=== PATIENT | female | born 1985 | race Caucasian/White ===

== ENCOUNTER 2018-08-29 13:46 | Emergency (ER) | payer OTHER ==
--- NOTE | 2018-08-29 14:36 | ER Document Report ---
ED Medical Screen (RME) - General Chief Complaint: Chest Pain Stated Complaint: CHEST PAIN Time Seen by Provider: 08/29/18 14:30 Primary Care Provider: ENIO PEPE CNM [Primary Care Provider] - Follow up as needed TRAVEL OUTSIDE OF THE [place] IN LAST 30 DAYS: No - HPI Notes: 08/29/18 14:35 Patient is a 32-year-old female with a history of hypertension and obesity who presents complaining of midsternal chest pain that radiates up into her left shoulder that began this morning with an episode of nausea vomiting mild headache. Patient states that she has also had some sinus pressure. She is otherwise able to eat and drink without difficulty. She is urinating normally and having normal bowel movements. Denies any prolonged immobilization, distance travel, recent surgery/trauma, personal cancer history, hormone use, smoking, or previous DVT/PE. Denies ROBERTSON, fever, neck pain, URI, Abd pain, dysuria, back pain, or rash. I have treated and performed a rapid initial assessment of this patient. A comprehensive ED assessment and evaluation of the patient, analysis of test results and completion of medical decision making process will be conducted by additional ED providers. PHYSICAL EXAMINATION: GENERAL: Well-appearing, well-nourished and in no acute distress. A&Ox4. Answers questions appropriately. LUNGS: Breath sounds clear to auscultation bilaterally and equal. No wheezes rales or rhonchi. HEART: Regular rate and rhythm without murmurs, rubs, gallops. Extremities: No cyanosis, clubbing, or edema b/l. Linn negative bilaterally. No lower extremity asymmetry. NEUROLOGICAL: Normal speech, normal gait. PSYCH: Normal mood, normal affect. - Related Data Allergies/Adverse Reactions: ketorolac tromethamine [From Toradol] Allergy (Severe, Verified 08/29/18 13:49) Beef Containing Products Allergy (Verified 08/29/18 13:49) Pork/Porcine Containing Products [Pork/Porcine Product Derivatives] Allergy (Ve rified 08/29/18 13:49) Past Medical History - Social History Chew tobacco use (# tins/day): No Frequency of alcohol use: None Drug Abuse: None - Past Medical History Cardiac Medical History: Reports: Hx Hypertension - ON MEDS Denies: Hx Coronary Artery Disease, Hx Heart Attack Pulmonary Medical History: Denies: Hx Asthma, Hx Bronchitis, Hx COPD, Hx Pneumonia Neurological Medical History: Denies: Hx Cerebrovascular Accident, Hx Seizures Renal/ Medical History: Reports: Hx Kidney Stones. Denies: Hx Peritoneal Dialysis Musculoskeltal Medical History: Denies Hx Arthritis Psychiatric Medical History: Reports: Hx Attention Deficit Hyperactivity Disorder Traumatic Medical History: Reports: Hx Fractures - right arm Past Surgical History: Reports: Hx Cholecystectomy, Hx Orthopedic Surgery - right arm. Denies: Hx Hysterectomy - Immunizations Hx Diphtheria, Pertussis, Tetanus Vaccination: Yes Physical Exam - Vital signs Vitals: Temp Pulse Resp BP Pulse Ox 98.3 F 78 20 151/87 H 96 08/29/18 13:56 08/29/18 13:56 08/29/18 13:56 08/29/18 13:56 08/29/18 13:56 Course - Vital Signs Vital signs: Temp Pulse Resp BP Pulse Ox 98.3 F 78 20 151/87 H 96 08/29/18 13:56 08/29/18 13:56 08/29/18 13:56 08/29/18 13:56 08/29/18 13:56 Doctor's Discharge - Discharge Referrals: ENIO PEPE CNM [Primary Care Provider] - Follow up as needed
[2018-08-29 15:01] LABS: ABSOLUTE BASOPHILS # (AUTO) 0.1 10^3/uL (0.0-0.2); ABSOLUTE EOSINOPHILS # (AUTO) 0.3 10^3/uL (0.0-0.6); ABSOLUTE LYMPHOCYTES (AUTO) 3.2 10^3/uL (0.5-4.7); ABSOLUTE MONOCYTES (AUTO) 0.7 10^3/uL (0.1-1.4); ABSOLUTE NEUT (AUTO) 4.1 10^3/uL (1.7-8.2); BASOPHILS % (AUTO) 0.9 % (0-2); HEMATOCRIT 43.3 % (36.0-47.0); HEMOGLOBIN 14.7 g/dL (12.0-15.5); LYMPHOCYTES % (AUTO) 38.2 % (13-45); MEAN CORPUSCULAR HEMOGLOBIN 30.9 pg (27.0-33.4); MEAN CORPUSCULAR HGB CONC 33.9 g/dL (32.0-36.0); MEAN CORPUSCULAR VOLUME 91 fl (80-97); MONOCYTES % (AUTO) 8.5 % (3-13); PLATELET COUNT 284 10^3/uL (150-450); RED BLOOD COUNT 4.76 10^6/uL (3.72-5.28); RED CELL DISTRIBUTION WIDTH 13.3 % (11.5-14.0); SEGMENTED NEUTROPHILS % (AUTO) 49.4 % (42-78); TOTAL CELLS COUNTED % (AUTO) 100 %; WHITE BLOOD COUNT 8.3 10^3/uL (4.0-10.5)
--- NOTE | 2018-08-29 15:11 | RADIOLOGY REPORT (SQ) ---
EXAM DESCRIPTION: CHEST 2 VIEWS COMPLETED DATE/TIME: 08/29/2018 3:02 pm REASON FOR STUDY: CP COMPARISON: None. EXAM PARAMETERS: NUMBER OF VIEWS: two views TECHNIQUE: Digital Frontal and Lateral radiographic views of the chest acquired. RADIATION DOSE: NA LIMITATIONS: none FINDINGS: LUNGS AND PLEURA: No opacities, masses or pneumothorax. No pleural effusion. MEDIASTINUM AND HILAR STRUCTURES: No masses or contour abnormalities. HEART AND VASCULAR STRUCTURES: Heart normal size. No evidence for failure. BONES: No acute findings. HARDWARE: None in the chest. OTHER: No other significant finding. IMPRESSION: No acute abnormality of the lungs. No focal airspace opacity. TECHNICAL DOCUMENTATION: JOB ID: [id number] [employer]- All Rights Reserved Reading location - IP/workstation name: [email or web address]
[2018-08-29 15:16] LABS: APPEARANCE,URINE CLOUDY; BILIRUBIN,URINE NEGATIVE (NEGATIVE); CALCIUM OXALATE CRYSTALS,URINE MODERATE /HPF; COLOR,URINE YELLOW; GLUCOSE, URINE NEGATIVE (NEGATIVE); KETONES,URINE NEGATIVE (NEGATIVE); LEUKOCYTE ESTERASE,URINE MODERATE (NEGATIVE); NITRITE,URINE NEGATIVE (NEGATIVE); PROTEIN,URINE 30 mg/dL (NEGATIVE); URINE SPECIFIC GRAVITY 1.023
[2018-08-29 15:19] LABS: ALANINE AMINOTRANSFERASE 83 U/L (9-52); ALBUMIN 4.8 g/dL (3.5-5.0); ALKALINE PHOSPHATASE 58 U/L (38-126); ANION GAP 11 (5-19); ASPARTATE AMINO TRANSFERASE 56 U/L (14-36); BILIRUBIN,DIRECT 0.3 mg/dL (0.0-0.4); BILIRUBIN,TOTAL 0.5 mg/dL (0.2-1.3); BLOOD UREA NITROGEN 10 mg/dL (7-20); CARBON DIOXIDE 28 mmol/L (22-30); CHLORIDE 103 mmol/L (98-107); GLUCOSE 97 mg/dL (75-110); POTASSIUM 4.5 mmol/L (3.6-5.0); SODIUM 141.5 mmol/L (137-145)
--- NOTE | 2018-08-29 16:21 | EKG REPORT ---
SEVERITY:- NORMAL ECG - SINUS RHYTHM : Confirmed by: Joe Harper MD 29-Aug-2018 16:20:17
[2018-08-29] MEDS ORDERED: NEBIVOLOL HCL 10 MG TABLET PO ONE (16:28)
[2018-08-29] MEDS ORDERED: LIDOCAINE 5% (700 MG) TRANSDERMAL ADH..PATCH TP ONE (16:28)
[2018-08-29] MEDS ORDERED: ACETAMINOPHEN 325 MG TABLET PO ONE (16:28)
[2018-08-29] MEDS ORDERED: CEPHALEXIN 500 MG CAPSULE PO ONE (16:28)
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
[2018-08-29 19:20] VITALS: BP 146/84
== END 2018-08-29 19:20 | disposition home or self-care (01) ==
LOC: ER 13:46
DX: F43.9 Reaction to severe stress, unspecified (principal); N39.0 Urinary tract infection, site not specified; R07.9 Chest pain, unspecified; M54.2 Cervicalgia; M25.512 Pain in left shoulder; M54.6 Pain in thoracic spine; R51 Headache; R11.2 Nausea with vomiting, unspecified; F41.9 Anxiety disorder, unspecified; R68.84 Jaw pain; M79.602 Pain in left arm; I10 Essential (primary) hypertension; Z79.899 Other long term (current) drug therapy
CPT/HCPCS: 36415; 71046; 80053; 81001; 81025; 84484; 85025; 87086; 93005; 93010; 99284

== ENCOUNTER 2018-12-06 10:02 | Emergency (ER) | payer OTHER ==
--- NOTE | 2018-12-06 10:46 | ER Document Report ---
ED Medical Screen (RME) - General Chief Complaint: Chest Pain > 30 Stated Complaint: CHEST PAIN Time Seen by Provider: 12/06/18 10:44 Mode of Arrival: Ambulatory Information source: Patient Notes: Patient is an otherwise healthy 33-year-old female presenting with left-sided chest pain, back pain, left arm and some left lateral neck pain that began this morning. Patient does report it is worse with movement. Patient declines offer of muscle relaxer. Pain is worse with movement, likely musculoskeletal in nature. Patient requesting Tylenol for pain. Patient wants to make sure this is not her heart. Exam: Heart sounds S1-S2 present with no ectopy noted. Lung sounds clear and equal bilaterally. Reproducible pain with palpation on the left chest wall. I have greeted and performed a rapid initial assessment of this patient. A comprehensive ED assessment and evaluation of the patient, analysis of test results and completion of the medical decision making process will be conducted by additional ED providers. I have specifically instructed the patient or family members with the patient to immediately return to any nursing staff should anything change in the patient's condition or with their chief complaint. This medical record was dictated with voice recognizing software. There may be grammatical, syntax errors that are unintended. TRAVEL OUTSIDE OF THE [place] IN LAST 30 DAYS: No - Related Data Allergies/Adverse Reactions: ketorolac tromethamine [From Toradol] Allergy (Severe, Verified 08/29/18 13:49) Beef Containing Products Allergy (Verified 08/29/18 13:49) Pork/Porcine Containing Products [Pork/Porcine Product Derivatives] Allergy (Verified 08/29/18 13:49) Past Medical History - Social History Chew tobacco use (# tins/day): No Frequency of alcohol use: Occasional Drug Abuse: None - Past Medical History Cardiac Medical History: Reports: Hx Hypertension - ON MEDS Denies: Hx Coronary Artery Disease, Hx Heart Attack Pulmonary Medical History: Denies: Hx Asthma, Hx Bronchitis, Hx COPD, Hx Pneumonia Neurological Medical History: Denies: Hx Cerebrovascular Accident, Hx Seizures Renal/ Medical History: Reports: Hx Kidney Stones. Denies: Hx Peritoneal Dialysis Musculoskeltal Medical History: Denies Hx Arthritis Psychiatric Medical History: Reports: Hx Attention Deficit Hyperactivity Disorder Traumatic Medical History: Reports: Hx Fractures - right arm Past Surgical History: Reports: Hx Cholecystectomy, Hx Orthopedic Surgery - right arm. Denies: Hx Hysterectomy - Immunizations Hx Diphtheria, Pertussis, Tetanus Vaccination: Yes Physical Exam - Vital signs Vitals: Temp Pulse Resp BP Pulse Ox 98.5 F 83 16 151/78 H 98 12/06/18 10:13 12/06/18 10:13 12/06/18 10:13 12/06/18 10:13 12/06/18 10:13 Course - Vital Signs Vital signs: Temp Pulse Resp BP Pulse Ox 98.5 F 83 16 151/78 H 98 12/06/18 10:13 12/06/18 10:13 12/06/18 10:13 12/06/18 10:13 12/06/18 10:13
[2018-12-06] MEDS ORDERED: ACETAMINOPHEN 325 MG TABLET PO ONE (10:47)
[2018-12-06 11:17] LABS: ABSOLUTE BASOPHILS # (AUTO) 0.1 10^3/uL (0.0-0.2); ABSOLUTE EOSINOPHILS # (AUTO) 0.3 10^3/uL (0.0-0.6); ABSOLUTE LYMPHOCYTES (AUTO) 2.4 10^3/uL (0.5-4.7); ABSOLUTE MONOCYTES (AUTO) 0.4 10^3/uL (0.1-1.4); ABSOLUTE NEUT (AUTO) 3.5 10^3/uL (1.7-8.2); BASOPHILS % (AUTO) 1.1 % (0-2); HEMATOCRIT 41.9 % (36.0-47.0); LYMPHOCYTES % (AUTO) 35.8 % (13-45); MEAN CORPUSCULAR HEMOGLOBIN 30.6 pg (27.0-33.4); MEAN CORPUSCULAR HGB CONC 33.5 g/dL (32.0-36.0); MEAN CORPUSCULAR VOLUME 91 fl (80-97); PLATELET COUNT 324 10^3/uL (150-450); RED BLOOD COUNT 4.59 10^6/uL (3.72-5.28); SEGMENTED NEUTROPHILS % (AUTO) 52.1 % (42-78); TOTAL CELLS COUNTED % (AUTO) 100 %; WHITE BLOOD COUNT 6.7 10^3/uL (4.0-10.5)
[2018-12-06 11:43] LABS: ALBUMIN 4.4 g/dL (3.5-5.0); ALKALINE PHOSPHATASE 55 U/L (38-126); ANION GAP 9 (5-19); ASPARTATE AMINO TRANSFERASE 31 U/L (14-36); BILIRUBIN,DIRECT 0.1 mg/dL (0.0-0.4); BILIRUBIN,TOTAL 0.5 mg/dL (0.2-1.3); BLOOD UREA NITROGEN 13 mg/dL (7-20); CALCIUM 9.7 mg/dL (8.4-10.2); CARBON DIOXIDE 28 mmol/L (22-30); CHLORIDE 103 mmol/L (98-107); GLUCOSE 136 mg/dL (75-110); POTASSIUM 4.2 mmol/L (3.6-5.0); TOTAL PROTEIN 7.8 g/dL (6.3-8.2)
--- NOTE | 2018-12-06 11:58 | RADIOLOGY REPORT (SQ) ---
EXAM DESCRIPTION: CHEST 2 VIEWS COMPLETED DATE/TIME: 12/06/2018 11:50 am REASON FOR STUDY: chest pain COMPARISON: PA and lateral views of the chest from 08/29/2018. EXAM PARAMETERS: NUMBER OF VIEWS: two views TECHNIQUE: Digital Frontal and Lateral radiographic views of the chest acquired. RADIATION DOSE: NA LIMITATIONS: none FINDINGS: LUNGS AND PLEURA: Mild bilateral peribronchial cuffing without a superimposed consolidatio n, pleural effusion or pneumothorax. MEDIASTINUM AND HILAR STRUCTURES: No mediastinal or hilar contour abnormality. HEART AND VASCULAR STRUCTURES: The cardiac silhouette and pulmonary vasculature are within normal ayoub its. BONES: No acute findings. HARDWARE: Intramedullary nail in the right humerus. OTHER: No other finding. IMPRESSION: Mild bilateral peribronchial cuffing without a superimposed consolidation, pleural effus ion or pneumothorax. Clinical correlation to exclude an infectious or inflammatory bronchiolitis is recommended. TECHNICAL DOCUMENTATION: JOB ID: [id number] [employer]- All Rights Reserved Reading location - IP/workstation name: [email or web address]
--- NOTE | 2018-12-06 13:24 | ER Document Report ---
ED General - General Chief Complaint: Chest Pain > 30 Stated Complaint: CHEST PAIN Time Seen by Provider: 12/06/18 10:44 Primary Care Provider: CORWIN KAPADIA PA-C [Primary Care Provider] - Follow up as needed Mode of Arrival: Ambulatory TRAVEL OUTSIDE OF THE [place] IN LAST 30 DAYS: No - HPI Notes: Patient is a 33-year-old female presents emergency department for evaluation of left-sided chest pain. She states she was playing with her son, and had onset of chest pain at about 9:00. It actually started in her thoracic area. It radiated around, underneath her axilla, into her chest. She states it hurts to move. Nothing seems to make it better. She described it as a sore, sharp pain. Because it was in her left side she was concerned it could be her heart. She declines muscle relaxers of any sort. She states she felt slightly nauseated when the pain was severe, at this point she denies any other associated symptoms. - Related Data Allergies/Adverse Reactions: ketorolac tromethamine [From Toradol] Allergy (Severe, Verified 12/06/18 11:15) Beef Containing Products Allergy (Verified 12/06/18 11:15) Pork/Porcine Containing Products [Pork/Porcine Product Derivatives] Allergy (Verified 12/06/18 11:15) Home Medications: Bystolic daily Past Medical History - General Information source: Patient - Social History Smoking Status: Never Smoker Chew tobacco use (# tins/day): No Frequency of alcohol use: Occasional Drug Abuse: None Family History: Reviewed & Not Pertinent Patient has suicidal ideation: No Patient has homicidal ideation: No - Past Medical History Cardiac Medical History: Reports: Hx Hypertension - ON MEDS Denies: Hx Coronary Artery Disease, Hx Heart Attack Pulmonary Medical History: Denies: Hx Asthma, Hx Bronchitis, Hx COPD, Hx Pneumonia Neurological Medical History: Denies: Hx Cerebrovascular Accident, Hx Seizures Renal/ Medical History: Reports: Hx Kidney Stones. Denies: Hx Peritoneal Dialysis Musculoskeletal Medical History: Denies Hx Arthritis Psychiatric Medical History: Reports: Hx Attention Deficit Hyperactivity Disorder Traumatic Medical History: Reports: Hx Fractures - right arm Past Surgical History: Reports: Hx Cholecystectomy, Hx Orthopedic Surgery - right arm. Denies: Hx Hysterectomy - Immunizations Hx Diphtheria, Pertussis, Tetanus Vaccination: Yes Review of Systems - Review of Systems Constitutional: No symptoms reported EENT: No symptoms reported Cardiovascular: See HPI Respiratory: No symptoms reported Gastrointestinal: See HPI Genitourinary: No symptoms reported Musculoskeletal: See HPI Skin: No symptoms reported Neurological/Psychological: No symptoms reported Physical Exam - Vital signs Vitals: Temp Pulse Resp BP Pulse Ox 98.5 F 83 16 151/78 H 98 12/06/18 10:13 12/06/18 10:13 12/06/18 10:13 12/06/18 10:13 12/06/18 10:13 - Notes Notes: Vital signs reviewed, please refer to chart. Head is normocephalic, atraumatic. Pupils equal round, reactive to light. Neck is supple without meningismus. Heart is regular rate and rhythm. Lungs are clear to auscultation bilaterally. Abdomen is soft, nontender, normoactive bowel sounds throughout. Extremities without cyanosis, clubbing. Posterior calves are nontender. Peripheral pulses are equal. Skin is warm and dry. Patient is awake, alert, neurological exam is nonfocal. Examination of the chest wall is no obvious deformity. Patient has significant tenderness to palpation over the left pectoralis muscle, particularly at the insertion site and more inferiorly. This pain wraps around into her upper back, where it is reproducible at the level of the thoracic spine at approximately T5-6. Course - Re-evaluation Re-evalutation: 12/06/18 14:03 Patient presents emergency department for evaluation. Obesity and high blood pressure are her risk factors for coronary artery disease. This, however, does not seem typical for anginal pain in any way. It is reproducible. It started onset of rest. Is worsened by movement. I explained to the patient that she should continue to address her risk factors aggressively as possible. She is to follow-up with primary care. She voiced understanding to this. She does not want any medications to help with pain at home. She is told to try moist heat. She is to return to the ED with worsening or new concerning symptoms of any sort. 12/06/18 14:04 In regards to her chest x-ray, the patient does not have any significant cough. My suspicion is that this is limited secondary to her BMI. She needs to follow- up with primary care. - Vital Signs Vital signs: Temp Pulse Resp BP Pulse Ox 97.9 F 72 16 140/88 H 95 12/06/18 13:33 12/06/18 13:33 12/06/18 13:33 12/06/18 13:33 12/06/18 13:33 - Laboratory Result Diagrams: 12/06/18 11:07 12/06/18 11:07 Laboratory results interpreted by me: 12/06/18 11:07 Glucose 136 H - Diagnostic Test Radiology reviewed: Reports reviewed Radiology results interpreted by me: 12/06/18 14:04 Chest X-Ray 12/06/18 10:29 IMPRESSION: Mild bilateral peribronchial cuffing without a superimposed consolidation, pleural effusion or pneumothorax. Clinical correlation to exclude an infectious or inflammatory bronchiolitis is recommended. - EKG Interpretation by Me Additional EKG results interpreted by me: 12/06/18 14:04 Sinus mechanism with a rate of 83 bpm. Normal axis and intervals, nonspecific ST changes, but no acute changes concerning for ischemia or infarction. Discharge - Discharge Clinical Impression: Chest pain, Thoracic back pain Condition: Stable Disposition: HOME, SELF-CARE Instructions: Chest Wall Pain ([facility]), Chest Pain of Unclear Cause ([facility]), Myalagia (Muscle Pain) ([facility]) Additional Instructions: Moist heat to the painful areas. Follow up iwth your primary care doctor next week. Be sure to continue to address your risk factors. Return to the ER with worsening or new concerning symptoms. Referrals: CORWIN KAPADIA PA-C [Primary Care Provider] - Follow up as needed
[2018-12-06 13:34] VITALS: BP 140/88
--- NOTE | 2018-12-06 19:08 | EKG REPORT ---
SEVERITY:- BORDERLINE ECG - SINUS RHYTHM BORDERLINE T ABNORMALITIES, INFERIOR LEADS : Confirmed by: Vandana Ellington MD 06-Dec-2018 19:07:51
== END 2018-12-06 14:00 | disposition home or self-care (01) ==
LOC: ER 10:02
DX: R07.9 Chest pain, unspecified (principal); M54.6 Pain in thoracic spine; R11.0 Nausea; E66.9 Obesity, unspecified; I10 Essential (primary) hypertension; Z79.899 Other long term (current) drug therapy; Z88.8 Allergy status to other drugs, medicaments and biological substances; Z91.018 Allergy to other foods
CPT/HCPCS: 36415; 71046; 80053; 84484; 85025; 93005; 93010; 99285

== ENCOUNTER 2019-01-15 10:29 | Emergency (ER) | payer OTHER ==
[2019-01-15 10:53] VITALS: BP 167/97
[2019-01-15] MEDS ORDERED: IBUPROFEN 800 MG TABLET PO ONE (11:10)
[2019-01-15] MEDS ORDERED: ACETAMINOPHEN 325 MG TABLET PO ONE (11:12)
--- NOTE | 2019-01-15 11:14 | ER Document Report ---
HPI - HPI Patient complains to provider of: Headache Time Seen by Provider: 01/15/19 11:06 Onset: Other - 4 days Quality of pain: Achy Severity: Moderate Pain Level: 3 Context: 33-year-old female presents emergency department with complaints of headache for the past 4 days. Reports [place] [facility] and fell hit her head against a railing and was knocked unconscious. She is unsure how long she was knocked unconscious. She reports she immediately started vomiting afterwards. Had a headache. She reports she vomited all day y esterday. Has taken Tylenol without relief of symptoms. Associated Symptoms: Vomiting Exacerbated by: Denies Relieved by: Denies Similar symptoms previously: No Recently seen / treated by doctor: No - REPRODUCTIVE Reproductive: DENIES: : Past Medical History - General Information source: Patient Last Menstrual Period: Current-denies reports not sexually active - Social History Smoking Status: Never Smoker Chew tobacco use (# tins/day): No Frequency of alcohol use: Occasional Drug Abuse: None Lives with: Family Family History: Reviewed & Not Pertinent Patient has suicidal ideation: No Patient has homicidal ideation: No - Past Medical History Cardiac Medical History: Reports: Hx Hypertension - ON MEDS Denies: Hx Coronary Artery Disease, Hx Heart Attack Pulmonary Medical History: Denies: Hx Asthma, Hx Bronchitis, Hx COPD, Hx Pneumonia Neurological Medical History: Denies: Hx Cerebrovascular Accident, Hx Seizures Renal/ Medical History: Reports: Hx Kidney Stones. Denies: Hx Peritoneal Dialysis Musculoskeletal Medical History: Denies Hx Arthritis Psychiatric Medical History: Reports: Hx Attention Deficit Hyperactivity Disorder Traumatic Medical History: Reports: Hx Fractures - right arm Past Surgical History: Reports: Hx Cholecystectomy, Hx Orthopedic Surgery - right arm. Denies: Hx Hysterectomy - Immunizations Hx Diphtheria, Pertussis, Tetanus Vaccination: Yes Vertical Provider Document - CONSTITUTIONAL Agree With Documented VS: Yes Exam Limitations: No Limitations General Appearance: WD/WN, No Apparent Distress - Nontoxic looking - INFECTION CONTROL TRAVEL OUTSIDE OF THE [place] IN LAST 30 DAYS: No - HEENT HEENT: Atraumatic, Normal ENT Exam, Normocephalic, PERRLA. negative: Conjuctival Injection, Pharyngeal Erythema, Tympanic Membrane Bulging - NECK Neck: Normal Inspection, Supple. negative: Lymphadenopathy-Left, Lymphadenopathy-Right - RESPIRATORY Respiratory: Breath Sounds Normal, No Respiratory Distress - CARDIOVASCULAR Cardiovascular: Regular Rate, Regular Rhythm - GI/ABDOMEN Gastrointestinal: Abdomen Soft - MUSCULOSKELETAL/EXTREMETIES Musculoskeletal/Extremeties: JACQUE RAMOS - NEURO Level of Consciousness: Awake, Alert, Appropriate Motor/Sensory: No Motor Deficit - DERM Integumentary: Warm, Dry Course - Re-evaluation Re-evalutation: 01/15/19 12:13 33-year-old female presents emergency department with complaints of head injury. Reports she fell off her stepstool on 4 days ago while she was hanging lights. Reports change in consciousness for a few seconds. Reported vomiting immediately afterwards then had a headache. Reports she is had a headache since then and vomited all day yesterday. Has taken Tylenol without relief of symptoms. Declines Motrin declines other medications. CT is negative for acute injury. Patient reports she is feeling a little bit better after she received Tylenol. She was instructed to follow-up with her primary care provider to review her blood pressure medications and for continued pain. She verbalized understanding to all instructions. Head CT 01/15/19 11:12 IMPRESSION: 1. No acute intracranial abnormality. EVIDENCE OF ACUTE STROKE: NO. 01/15/19 12:51 Dictation of this chart was performed using voice recognition software; therefore, there may be some unintended grammatical errors. - Vital Signs Vital signs: Temp Pulse Resp BP Pulse Ox 97.8 F 79 20 167/97 H 98 01/15/19 11:04 01/15/19 11:04 01/15/19 11:04 01/15/19 11:04 01/15/19 11:04 - Diagnostic Test Radiology reviewed: Reports reviewed Discharge - Discharge Clinical Impression: Vomiting Head injury Qualifiers: Encounter type: initial encounter Qualified Code(s): S09.90XA - Unspecified injury of head, initial encounter Headache Qualifiers: Headache type: unspecified Headache chronicity pattern: unspecified pattern Intractability: not intractable Qualified Code(s): R51 - Headache Condition: Stable Disposition: HOME, SELF-CARE Instructions: Antinausea Medication ([facility]), Use of Diphenhydramine, Headache ([facility]), Head Injury Precautions ([facility]), Vomiting ([facility]) Additional Instructions: *You have been evaluated for head injury, vomiting, and headache *Push fluids, take Tylenol as indicated for headache, take Benadryl as indicated *Follow up with your primary care provider within 1 week *Take medication as prescribed for nausea *Return to ED for worsening condition, changes, needs Prescriptions: Ondansetron [Zofran Odt 4 mg Tablet] 1 - 2 tab PO Q4H #10 tab.daysidis Referrals: CORWIN KAPADIA PA-C [Primary Care Provider] - Follow up in 3-5 days
--- NOTE | 2019-01-15 12:05 | RADIOLOGY REPORT (SQ) ---
EXAM DESCRIPTION: CT HEAD WITHOUT COMPLETED DATE/TIME: 01/15/2019 11:38 am REASON FOR STUDY: FALL CHANGE IN LOC [place] COMPARISON: None. TECHNIQUE: Axial images acquired through the brain without intravenous contrast. Images reviewed wi th bone, brain and subdural windows. Additional sagittal and coronal reconstructions were generated. Images stored on PACS. All CT scanners at this facility use dose modulation, iterative reconstruction, and/or weight based d osing when appropriate to reduce radiation dose to as low as reasonably achievable (ALARA). [facility]: Dose Right [facility]: CareDose [facility]: Dose Right [facility]: Teradose 4D [facility]: Smart Lore RADIATION DOSE: CT Rad equipment meets quality standard of care and radiation dose reduction techniq ues were employed. CTDIvol: 53.2 mGy. DLP: 1017 mGy-cm. LIMITATIONS: None. FINDINGS: VENTRICLES: Normal size and contour. The cisterns are patent. CEREBRUM: No masses. No hemorrhage. No midline shift. No evidence for acute infarction. Normal gra y/white matter differentiation. No areas of low density in the white matter. CEREBELLUM: No masses. No hemorrhage. No alteration of density. No evidence for acute infarction. EXTRAAXIAL SPACES: No fluid collections. No masses. ORBITS AND GLOBE: No intra- or extraconal masses. Normal contour of globe without masses. CALVARIUM: No fracture. PARANASAL SINUSES: No fluid or mucosal thickening. SOFT TISSUES: No mass or hematoma. OTHER: No other significant finding. IMPRESSION: 1. No acute intracranial abnormality. EVIDENCE OF ACUTE STROKE: NO. COMMENT: Quality ID # [id number]: Final reports with documentation of one or more dose reduction techniques (e.g., Automated exposure control, adjustment of the mA and/or kV according to patient size, use of iterative reconstruction technique) TECHNICAL DOCUMENTATION: JOB ID: [id number] [employer]- All Rights Reserved Reading location - IP/workstation name: [email or web address]
== END 2019-01-15 12:20 | disposition home or self-care (01) ==
LOC: ER 10:29
DX: S06.9X9A Unspecified intracranial injury with loss of consciousness of unspecified duration, initial encounter (principal); R51 Headache; R11.10 Vomiting, unspecified; W17.89XA Other fall from one level to another, initial encounter; Y93.89 Activity, other specified; I10 Essential (primary) hypertension
CPT/HCPCS: 70450; 99284

== ENCOUNTER 2019-04-01 10:35 | Emergency (ER) | payer OTHER ==
--- NOTE | 2019-04-01 12:02 | ER Document Report ---
ED Medical Screen (RME) - General Chief Complaint: Chest Pain Stated Complaint: CHEST PAIN Time Seen by Provider: 04/01/19 11:51 Primary Care Provider: CORWIN KAPADIA PA-C [Primary Care Provider] - Follow up as needed Mode of Arrival: Ambulatory Information source: Patient Notes: Otherwise healthy 33-year-old female presenting to the emergency department with cough, congestion, chest pain and shortness of breath. Patient reports diagnosed with flu B several days ago. Patient reports she is getting worse. Lung sounds clear and equal bilaterally. I have greeted and performed a rapid initial assessment of this patient. A comprehensive ED assessment and evaluation of the patient, analysis of test results and completion of the medical decision making process will be conducted by additional ED providers. I have specifically instructed the patient or family members with the patient to immediately return to any nursing staff should anything change in the patient's condition or with their chief complaint. TRAVEL OUTSIDE OF THE [place] IN LAST 30 DAYS: No - Related Data Allergies/Adverse Reactions: ketorolac tromethamine [From Toradol] Allergy (Severe, Verified 04/01/19 11:54) Beef Containing Products Allergy (Verified 04/01/19 11:54) Pork/Porcine Containing Products [Pork/Porcine Product Derivatives] Allergy (Verified 04/01/19 11:54) tramadol Allergy (Verified 04/01/19 11:54) throat swelling Past Medical History - Past Medical History Cardiac Medical History: Reports: Hx Hypertension - ON MEDS Denies: Hx Coronary Artery Disease, Hx Heart Attack Pulmonary Medical History: Denies: Hx Asthma, Hx Bronchitis, Hx COPD, Hx Pneumonia Neurological Medical History: Denies: Hx Cerebrovascular Accident, Hx Seizures Renal/ Medical History: Reports: Hx Kidney Stones. Denies: Hx Peritoneal Dialysis Musculoskeltal Medical History: Denies Hx Arthritis Psychiatric Medical History: Reports: Hx Attention Deficit Hyperactivity Disorder Traumatic Medical History: Reports: Hx Fractures - right arm Past Surgical History: Reports: Hx Cholecystectomy, Hx Orthopedic Surgery - right arm. Denies: Hx Hysterectomy - Immunizations Hx Diphtheria, Pertussis, Tetanus Vaccination: Yes Physical Exam - Vital signs Vitals: Temp Pulse Resp BP Pulse Ox 98.5 F 95 16 134/84 H 100 04/01/19 11:00 04/01/19 11:00 04/01/19 11:00 04/01/19 11:00 04/01/19 11:00 Course - Vital Signs Vital signs: Temp Pulse Resp BP Pulse Ox 98.5 F 95 16 134/84 H 100 04/01/19 11:00 04/01/19 11:00 04/01/19 11:00 04/01/19 11:00 04/01/19 11:00 Doctor's Discharge - Discharge Referrals: CORWIN KAPADIA PA-C [Primary Care Provider] - Follow up as needed
[2019-04-01 13:11] LABS: A TYPE INFLUENZA AG NEGATIVE (NEGATIVE); B INFLUENZA AG NEGATIVE (NEGATIVE)
--- NOTE | 2019-04-01 13:14 | RADIOLOGY REPORT (SQ) ---
EXAM DESCRIPTION: CHEST 2 VIEWS COMPLETED DATE/TIME: 04/01/2019 12:55 pm REASON FOR STUDY: cough/CP/fever COMPARISON: Two-view chest 12/06/2018 EXAM PARAMETERS: NUMBER OF VIEWS: two views TECHNIQUE: Digital Frontal and Lateral radiographic views of the chest acquired. RADIATION DOSE: NA LIMITATIONS: none FINDINGS: LUNGS AND PLEURA: No opacities, masses or pneumothorax. No pleural effusion. MEDIASTINUM AND HILAR STRUCTURES: No masses or contour abnormalities. HEART AND VASCULAR STRUCTURES: Stable borderline cardiomegaly BONES: No acute findings. HARDWARE: None in the chest. OTHER: No other significant finding. IMPRESSION: NO ACUTE RADIOGRAPHIC FINDING IN THE CHEST. TECHNICAL DOCUMENTATION: JOB ID: [id number] 2010 [employer]- All Rights Reserved Reading location - IP/workstation name: [email or web address]
[2019-04-01] MEDS ORDERED: CETIRIZINE 10 MG TABLET PO ONE (13:35)
[2019-04-01] MEDS ORDERED: IPRATROPIUM/ALBUTEROL 0.5-2.5 MG/3 ML AMPUL NEB ONE (13:35)
--- NOTE | 2019-04-01 13:43 | ER Document Report ---
ED Respiratory Problem - General Chief Complaint: Shortness Of Breath Stated Complaint: CHEST PAIN Time Seen by Provider: 04/01/19 11:51 Primary Care Provider: [facility] [Provider Group] - Follow up in 3-5 days Mode of Arrival: Ambulatory Notes: Patient is a 33-year-old female who presents to the emergency department with a chief complaint of shortness of breath and difficulty breathing. She also reports a little bit of chest pain. Patient was recently diagnosed with the flu and she has been coughing. She has been taking Tylenol to help with her pain and fever. TRAVEL OUTSIDE OF THE [place] IN LAST 30 DAYS: No - Related Data Allergies/Adverse Reactions: ketorolac tromethamine [From Toradol] Allergy (Severe, Verified 04/01/19 11:54) Beef Containing Products Allergy (Verified 04/01/19 11:54) Penicillins Allergy (Verified 04/01/19 14:16) Pork/Porcine Containing Products [Pork/Porcine Product Derivatives] Allergy (Verified 04/01/19 11:54) tramadol Allergy (Verified 04/01/19 11:54) throat swelling Home Medications: Lisinopril Past Medical History - General Information source: Patient - Social History Smoking Status: Never Smoker Chew tobacco use (# tins/day): No Drug Abuse: None Family History: Reviewed & Not Pertinent Patient has suicidal ideation: No Patient has homicidal ideation: No - Past Medical History Cardiac Medical History: Reports: Hx Hypertension - ON MEDS Denies: Hx Coronary Artery Disease, Hx Heart Attack Pulmonary Medical History: Denies: Hx Asthma, Hx Bronchitis, Hx COPD, Hx Pneumonia Neurological Medical History: Denies: Hx Cerebrovascular Accident, Hx Seizures Renal/ Medical History: Reports: Hx Kidney Stones. Denies: Hx Peritoneal Dialysis Musculoskeletal Medical History: Denies Hx Arthritis Psychiatric Medical History: Reports: Hx Attention Deficit Hyperactivity Disorder Traumatic Medical History: Reports: Hx Fractures - right arm Past Surgical History: Reports: Hx Cholecystectomy, Hx Orthopedic Surgery - right arm. Denies: Hx Hysterectomy - Immunizations Hx Diphtheria, Pertussis, Tetanus Vaccination: Yes Review of Systems - Review of Systems Notes: REVIEW OF SYSTEMS: CONSTITUTIONAL : See HPI. EENT: See HPI. CARDIOVASCULAR: See HPI. RESPIRATORY: See HPI. GASTROINTESTINAL: Denies nausea, vomiting, and diarrhea. Denies abdominal pain. Denies constipation. GENITOURINARY: Denies difficulty urinating, burning, blood in urine, urgency or frequency. MUSCULOSKELETAL: Denies neck and back pain. Denies joint pain or swelling. SKIN: Denies rash, itchiness, or lesions HEMATOLOGIC : Denies easy bruising or bleeding. LYMPHATIC: Denies swollen, painful, enlarged glands. NEUROLOGICAL: Denies no numbness or tingling denies weakness. Denies headache. Denies altered mental status. Denies alteration in speech. PSYCHIATRIC: Denies stress, anxiety, alteration in sleep patterns, or depression. All other systems reviewed and negative. Physical Exam - Vital signs Vitals: Temp Pulse Resp BP Pulse Ox 98.5 F 95 16 134/84 H 100 04/01/19 11:00 04/01/19 11:00 04/01/19 11:00 04/01/19 11:04/01/19 11:00 - Notes Notes: PHYSICAL EXAMINATION: GENERAL: Appears well, healthy, well-nourished, no acute distress. HEAD: Normocephalic, atraumatic. EYES: PERRL, conjunctiva normal, all extraocular movements intact, sclera nonicteric ENT: Moist mucous membranes. Left tympanic membrane injected and right tympanic membrane with purulent drainage behind it. NECK: Supple, no noticeable swelling, redness, rash. Normal range of motion. LUNGS: Equal breath sounds bilaterally and clear to auscultation. No wheezes ra les or rhonchi. CARDIOVASCULAR: S1-S2, regular rate, regular rhythm. Radial pulses 2+, normal. ABDOMEN: Normoactive bowel sounds. Soft, nontender, no guarding, no rebound tenderness, and no masses palpated. EXTREMITIES: Normal strength and range of motion, no pitting or edema. No cyanosis. NEUROLOGICAL: Moves all extremities upon command. Strength 5/5 in all extremities. PSYCH: Normal mood, normal affect. SKIN: Warm, dry. No rash, lesions, ulcerations noted. Normal skin turgor. Course - Re-evaluation Re-evalutation: 04/01/19 13:38 Patient has diminished breath sounds throughout. Her chest x-ray is normal. No pneumonia noted. Patient will receive a DuoNeb treatment and will be reassessed. 04/01/19 13:58 RSV and flu are negative. She will be started on Flonase. Advised her to continue the cetirizine. She is in agreement with this plan. Follow-up precautions were given. Verbal discharge instructions were given to the patient. They verbalized understanding. They are stable for discharge. - Vital Signs Vital signs: Temp Pulse Resp BP Pulse Ox 98.0 F 82 18 128/78 H 98 04/01/19 14:15 04/01/19 14:15 04/01/19 14:15 04/01/19 14:15 04/01/19 14:15 Discharge - Discharge Clinical Impression: Upper respiratory infection, viral Right otitis media Qualifiers: Otitis media type: mucoid Chronicity: acute Qualified Code(s): H65.111 - Acute and subacute allergic otitis media (mucoid) (sanguinous) (serous), right ear Condition: Stable Disposition: HOME, SELF-CARE Additional Instructions: You were seen today in the emergency department for a cough, ear pain, and chest pain. Your symptoms are most consistent with an upper respiratory viral infection. Please take acetaminophen 1000 mg and ibuprofen 600 mg every 6 hours as needed for any body aches or fever. Please take your cetirizine, medication to help with your runny nose. Take 1 tablet every day while you have symptoms. You have also been given Flonase, medication to help with the inflammation in your nose. Place 1 spray to each nostril twice a day. If you develop a fever greater than 100.4 F while on ibuprofen and acetaminophen, develop shortness of breath, difficulty breathing, or any symptoms that are worrisome to you, please return to the emergency department. You are also being sent home with an albuterol inhaler. You can take 1 to 2 puffs every 4-6 hours as needed for shortness of breath. You also have an ear infection. You are being started on antibiotics. Please take your antibiotics as prescribed. Follow-up with your primary care provider in regards to this visit. Prescriptions: Fluticasone Propionate [Flonase Nasal [place] 50 Mcg/[place] 16 gm] 2 sprays NASL DAILY #1 inhaler Albuterol Sulfate [Proair HFA Inhalation Aerosol 8.5 gm MDI] 1 - 2 puff IH Q4H PRN #1 mdi PRN Reason: Azithromycin [Zithromax 250 mg Tablet] 250 mg PO DAILY #4 tablet Forms: Return to Work Referrals: [facility] [Provider Group] - Follow up in 3-5 days
[2019-04-01] MEDS ORDERED: ACETAMINOPHEN 325 MG TABLET PO ONE (14:02)
[2019-04-01] MEDS ORDERED: AZITHROMYCIN 250 MG TABLET PO ONE (14:11)
[2019-04-01 14:21] VITALS: BP 128/78
--- NOTE | 2019-04-01 18:48 | EKG REPORT ---
SEVERITY:- NORMAL ECG - SINUS RHYTHM : Confirmed by: Ramandeep Teague 01-Apr-2019 18:47:23
== END 2019-04-01 14:27 | disposition home or self-care (01) ==
LOC: ER 10:35
DX: J06.9 Acute upper respiratory infection, unspecified (principal); H65.111 Acute and subacute allergic otitis media (mucoid) (sanguinous) (serous), right ear; R06.02 Shortness of breath; R07.9 Chest pain, unspecified; R06.00 Dyspnea, unspecified; I10 Essential (primary) hypertension; Z88.0 Allergy status to penicillin; Z90.49 Acquired absence of other specified parts of digestive tract
CPT/HCPCS: 93005; 94640; 99285; 87070; 87880; 87804; 71046; 93010; J7620

== ENCOUNTER 2019-08-15 03:48 | Emergency (ER) | payer OTHER ==
--- NOTE | 2019-08-15 05:04 | RADIOLOGY REPORT (SQ) ---
EXAM DESCRIPTION: XR CHEST 1 VIEW COMPLETED DATE/TME: 08/15/2019 04:23 CLINICAL HISTORY: 33 years, Female, chest pain COMPARISON: 04/01/2019 NUMBER OF VIEWS: One TECHNIQUE: AP view the chest LIMITATIONS: None. FINDINGS: The lungs are clear. The heart is normal in size. There is no pneumothorax or pleural effusion. Postsurgical changes to the right humerus are partially visualized. IMPRESSION: No acute cardiopulmonary abnormality. copyright 2010 [employer]- All Rights Reserved
[2019-08-15] MEDS ORDERED: ACETAMINOPHEN 325 MG TABLET PO ONE (05:45)
[2019-08-15] MEDS ORDERED: ONDANSETRON 4 MG TAB.RAPDIS PO ONE (05:47)
[2019-08-15] MEDS ORDERED: ONDANSETRON 4 MG TAB.RAPDIS ONE (05:52)
[2019-08-15 06:30] LABS: ABSOLUTE EOSINOPHILS # (AUTO) 0.2 10^3/uL (0.0-0.6); ABSOLUTE LYMPHOCYTES (AUTO) 2.8 10^3/uL (0.5-4.7); ABSOLUTE MONOCYTES (AUTO) 0.7 10^3/uL (0.1-1.4); BASOPHILS % (AUTO) 0.6 % (0-2); EOSINOPHILS % (AUTO) 3.3 % (0-6); HEMATOCRIT 40.6 % (36.0-47.0); LYMPHOCYTES % (AUTO) 41.7 % (13-45); MEAN CORPUSCULAR HEMOGLOBIN 32.1 pg (27.0-33.4); MEAN CORPUSCULAR HGB CONC 34.5 g/dL (32.0-36.0); MEAN CORPUSCULAR VOLUME 93 fl (80-97); MONOCYTES % (AUTO) 9.9 % (3-13); PLATELET COUNT 275 10^3/uL (150-450); RED BLOOD COUNT 4.37 10^6/uL (3.72-5.28); SEGMENTED NEUTROPHILS % (AUTO) 44.5 % (42-78); TOTAL CELLS COUNTED % (AUTO) 100 %; WHITE BLOOD COUNT 6.8 10^3/uL (4.0-10.5)
[2019-08-15 06:50] LABS: ALBUMIN 4.1 g/dL (3.5-5.0); ALKALINE PHOSPHATASE 49 U/L (38-126); ANION GAP 7 (5-19); ASPARTATE AMINO TRANSFERASE 30 U/L (14-36); BILIRUBIN,TOTAL 0.6 mg/dL (0.2-1.3); BLOOD UREA NITROGEN 13 mg/dL (7-20); CALCIUM 9.5 mg/dL (8.4-10.2); CARBON DIOXIDE 26 mmol/L (22-30); CHLORIDE 105 mmol/L (98-107); GLUCOSE 101 mg/dL (75-110); TOTAL PROTEIN 7.1 g/dL (6.3-8.2)
--- NOTE | 2019-08-15 08:06 | ER Document Report ---
ED General - General Chief Complaint: Chest Pain Stated Complaint: CHEST PAIN Time Seen by Provider: 08/15/19 06:41 Primary Care Provider: CORWIN KAPADIA PA-C [Primary Care Provider] - Follow up as needed TRAVEL OUTSIDE OF THE [place] IN LAST 30 DAYS: No - HPI Notes: Chief complaint: Sore throat and chest pain HPI: Generally healthy 33-year-old female followed by [facility] was previously seen here 3 days ago for complaints of nonproductive cough and sore throat and had a COVID test done at that time which was reported negative. Persistent symptoms. She got a call from the clinic late yesterday being advised that she had a positive strep test. She is coming here requesting an antibiotic prescription and says also that her chest area is sore from coughing. - Related Data Allergies/Adverse Reactions: ketorolac tromethamine [From Toradol] Allergy (Severe, Verified 04/01/19 11:54) Beef Containing Products Allergy (Verified 04/01/19 11:54) Penicillins Allergy (Verified 04/01/19 14:16) Pork/Porcine Containing Products [Pork/Porcine Product Derivatives] Allergy (Verified 04/01/19 11:54) tramadol Allergy (Verified 04/01/19 11:54) throat swelling Home Medications: bystolic Past Medical History - General Information source: Patient - Social History Smoking Status: Never Smoker Family History: Reviewed & Not Pertinent Patient has homicidal ideation: No - Past Medical History Cardiac Medical History: Reports: Hx Hypertension - ON MEDS Denies: Hx Coronary Artery Disease, Hx Heart Attack Pulmonary Medical History: Denies: Hx Asthma, Hx Bronchitis, Hx COPD, Hx Pneumonia Neurological Medical History: Denies: Hx Cerebrovascular Accident, Hx Seizures Renal/ Medical History: Reports: Hx Kidney Stones. Denies: Hx Peritoneal Dialysis Musculoskeletal Medical History: Denies Hx Arthritis Psychiatric Medical History: Reports: Hx Attention Deficit Hyperactivity Disorder Traumatic Medical History: Reports: Hx Fractures - right arm Past Surgical History: Reports: Hx Cholecystectomy, Hx Orthopedic Surgery - r ight arm. Denies: Hx Hysterectomy - Immunizations Hx Diphtheria, Pertussis, Tetanus Vaccination: Yes Review of Systems - Review of Systems Notes: Constitutional: Negative for fever. HENT: As per HPI. Eyes: Negative for visual changes. Cardiovascular: As per HPI. Respiratory: As per HPI. Gastrointestinal: Negative for abdominal pain, vomiting or diarrhea. Genitourinary: Negative for dysuria. Musculoskeletal: Negative for back pain. Skin: Negative for rash. Neurological: Negative for headaches, weakness or numbness. 10 point ROS negative except as marked above and in HPI. Physical Exam - Vital signs Vitals: Pulse Ox 99 08/15/19 04:23 - Notes Notes: GENERAL: Moderately obese female approximately stated age appearing in no acute distress. SKIN: Good turgor no rashes. HEAD: Normocephalic atraumatic. EYES: PERRLA. EOMI. Conjunctivae and sclerae clear. EARS: CANALS AND TMS CLEAR. NOSE: CLEAR. MOUTH: Moist mucosa. Good dentition. No stridor or edema. No drooling. Throat: Injected without exudates. NECK: Supple. No masses or thyromegaly. No adenopathy. Carotids 2+ without bruits. No JVD. BACK: Symmetrical without tenderness. CHEST: Diffuse anterior chest wall tenderness that exactly reproduces her symptoms. Respirations unlabored. Breath sounds clear and symmetrical. HEART: Regular rhythm. No murmur gallop or rub. ABDOMEN: Soft nontender without masses, organomegaly or rebound. Bowel sounds normally active. No bruits. GENITALIA: Deferred. EXTREMITIES: No edema. No calf tenderness. Cap refill less than 1.5 seconds. Dorsalis pedis and posterior tibial pulses 3+ and symmetrical. NEUROLOGICAL: GCS 15. Alert and oriented x3. Normal gait. Fluent speech. Cranial nerves II through XII intact. Sensorimotor and cerebellar normal. Normal tone. PSYCHIATRIC: Appropriate affect. Course - Re-evaluation Re-evalutation: 08/15/19 08:06 CBC and comprehensive metabolic profile are all normal. Troponin is normal. Chest x-ray shows no active cardiopulmonary disease per radiologist. Normal EKG. Patient appears stable for outpatient management. We will treat her empirically with a Z-Shawn. Findings, clinical impression and plan of treatment have been discussed with patient/family. Understanding of current findings and recommendations has been acknowledged by them and there is agreement regarding disposition and follow-up. - Vital Signs Vital signs: Temp Pulse Resp BP Pulse Ox 98.5 F 70 16 131/81 H 97 08/15/19 07:02 08/15/19 04:31 08/15/19 07:01 08/15/19 07:01 08/15/19 07:01 - Laboratory Result Diagrams: 08/15/19 05:20 08/15/19 05:20 - Diagnostic Test Radiology reviewed: Reports reviewed - Normal chest x-ray per radiologist - EKG Interpretation by Me Additional EKG results interpreted by me: 08/15/19 08:07 Twelve-lead EKG from 04 15 hrs. this morning is reviewed by me demonstrating normal sinus rhythm with a rate of 86. Normal intervals and a QRS axis of -3 degrees. There are no acute ST/T wave changes. Tracing shows no interval change compared to prior study of 04/01/2019. Indication for current study: Chest pain. Discharge - Discharge Clinical Impression: Acute streptococcal pharyngitis Condition: Stable Disposition: HOME, SELF-CARE Additional Instructions: Strep Throat Your sore throat is due to the streptococcus germ (strep throat). Strep throat usually makes you feel quite ill with fever and aches, headache, swollen sore throat, and tender bumps under the angles of the jaw. Strep throat requires antibiotic treatment. Although the sore throat may go away by itself, complications such as rheumatic fever, kidney disease, or throat abscess can occur. We usually prescribe antibiotics by mouth. Be sure to take the medicine until it's gone. If you stop early, the strep may come back. If you are vomiting, are severely ill, or can't remember to take pills, we can give you an antibiotic shot. Take acetaminophen or ibuprofen for pain and fever. Sip frequent clear liquids, or use popsicles or ice chips. Anesthetic sprays or lozenges may help. Make sure the air in the room is not too dry. Avoid using decongestants or antihistamines. Call the doctor if there is no improvement in three days, or if you have difficulty breathing, increasing throat pain, high fever, rash, or frequent vomiting. Increase oral fluids. Tylenol as needed. Gargle with warm salt water as needed. Return here as needed for new or worsening symptoms: Pain that is worsening or unimproved Uncontrolled vomiting High fever or shaking chills Overall worsening You will be provided a work note for the next 3 days. Follow-up with your primary care physician next week. Prescriptions: Azithromycin [Zithromax 250 mg Tablet] 250 mg PO ASDIR PRN #6 tablet PRN Reason: Forms: Return to Work Referrals: KANG,CORWIN, PA-C [Primary Care Provider] - Follow up as needed
[2019-08-15 08:14] VITALS: BP 131/85
--- NOTE | 2019-08-15 22:11 | EKG REPORT ---
SEVERITY:- NORMAL ECG - SINUS RHYTHM : Confirmed by: Vandana Ellington MD 15-Aug-2019 22:10:46
== END 2019-08-15 08:42 | disposition home or self-care (01) ==
LOC: ER 03:48
DX: J02.0 Streptococcal pharyngitis (principal); R05 Cough; R07.9 Chest pain, unspecified; E66.9 Obesity, unspecified; I10 Essential (primary) hypertension; Z79.899 Other long term (current) drug therapy; Z88.8 Allergy status to other drugs, medicaments and biological substances; Z91.018 Allergy to other foods; Z88.0 Allergy status to penicillin; Z88.6 Allergy status to analgesic agent
CPT/HCPCS: 93005; 99284; 36415; 85025; 80053; 84484; 71045; 93010; S0119

== ENCOUNTER 2019-12-01 07:41 | Emergency (ER) | payer OTHER ==
[2019-12-01] MEDS ORDERED: ONDANSETRON HCL INJ/PF 4 MG/2 ML SDV IV ONE ×2 (08:32→10:39)
[2019-12-01] MEDS ORDERED: NORMAL SALINE 1000 ML 1,000 ML IV ONE (08:32)
[2019-12-01] MEDS ORDERED: MORPHINE SULFATE 10 MG/ML INJ IV ONE ×3 (08:32→10:39)
--- NOTE | 2019-12-01 08:37 | ER Document Report ---
ED GI/ - General Chief Complaint: Flank Pain Stated Complaint: ABDOMINAL PAIN Time Seen by Provider: 12/01/19 08:25 Primary Care Provider: CORWIN KAPADIA PA-C [Primary Care Provider] - Follow up as needed Notes: Patient is a 34-year-old female with a history of hypertension who presents to the emergency department with the chief complaint of left flank pain. Patient reports acute onset of left flank pain starting around 7 AM this morning. Patient reports she does have a history of kidney stones but that this feels different. Pain does wrap around into the left lower quadrant and left groin area. Patient states when she woke up with the pain she felt like urinating would help with her discomfort but it made it worse. Patient reports that she is only able to urinate a small amount. Patient denies fever. Patient reports nausea with vomiting. Denies diarrhea. Patient's abdominal surgeries include a cholecystectomy. TRAVEL OUTSIDE OF THE [place] IN LAST 30 DAYS: No - Related Data Allergies/Adverse Reactions: ketorolac tromethamine [From Toradol] Allergy (Severe, Verified 12/01/19 07:44) Beef Containing Products Allergy (Verified 12/01/19 07:44) Penicillins Allergy (Verified 12/01/19 07:44) Pork/Porcine Containing Products [Pork/Porcine Product Derivatives] Allergy (Verified 12/01/19 07:44) tramadol Allergy (Verified 12/01/19 07:44) throat swelling Past Medical History - General Information source: Patient - Social History Smoking Status: Unknown if Ever Smoked Chew tobacco use (# tins/day): No Drug Abuse: None Lives with: Family Family History: Reviewed & Not Pertinent - Past Medical History Cardiac Medical History: Reports: Hx Hypertension - ON MEDS Denies: Hx Coronary Artery Disease, Hx Heart Attack Pulmonary Medical History: Reports: None Denies: Hx Asthma, Hx Bronchitis, Hx COPD, Hx Pneumonia EENT Medical History: Reports: None Neurological Medical History: Reports: None. Denies: Hx Cerebrovascular Accident, Hx Seizures Endocrine Medical History: Reports: None Renal/ Medical History: Reports: Hx Kidney Stones. Denies: Hx Peritoneal Dialysis Malignancy Medical History: Reports: None GI Medical History: Reports: None Musculoskeletal Medical History: Reports None, Denies Hx Arthritis Skin Medical History: Reports None Psychiatric Medical History: Reports: Hx Attention Deficit Hyperactivity Disor shahla Traumatic Medical History: Reports: Hx Fractures - right arm Past Surgical History: Reports: Hx Cholecystectomy, Hx Orthopedic Surgery - right arm. Denies: Hx Hysterectomy - Immunizations Hx Diphtheria, Pertussis, Tetanus Vaccination: Yes Review of Systems - Review of Systems Constitutional: No symptoms reported EENT: No symptoms reported Cardiovascular: No symptoms reported Respiratory: No symptoms reported Gastrointestinal: See HPI Genitourinary: See HPI Female Genitourinary: No symptoms reported Musculoskeletal: No symptoms reported Skin: No symptoms reported Hematologic/Lymphatic: No symptoms reported Neurological/Psychological: No symptoms reported Physical Exam - Vital signs Vitals: Temp Pulse Resp BP Pulse Ox 97.7 F 95 18 155/94 H 98 12/01/19 07:50 12/01/19 07:50 12/01/19 07:50 12/01/19 07:50 12/01/19 07:50 Interpretation: Hypertensive - Notes Notes: GENERAL: Appears uncomfortable and unable to find position of comfort on the stretcher. HEAD: Atraumatic, normocephalic. EYES: Pupils equal round and reactive to light, extraocular movements intact, sclera anicteric, conjunctiva are normal. ENT: Nares patent, oropharynx clear without exudates. Moist mucous membranes. NECK: Normal range of motion, supple without lymphadenopathy or JVD. LUNGS: Breath sounds clear to auscultation bilaterally and equal. No wheezes rales or rhonchi. HEART: Regular rate and rhythm without murmurs, rubs or gallops. ABDOMEN: Obese, soft, nontender, normoactive bowel sounds. No masses appreciated. BACK: No cervical, thoracic, lumbar midline tenderness. No saddle anesthesia, normal distal neurovascular exam. GENITOURINARY: Deferred. EXTREMITIES: Normal range of motion, no pitting or edema. No clubbing or cyanosis. NEUROLOGICAL: Cranial nerves II through XII grossly intact. Normal speech, normal gait. PSYCH: Normal mood, normal affect. SKIN: Warm, Dry, normal turgor, no rashes or lesions noted. Course - Re-evaluation Re-evalutation: 12/01/19 08:36 Patient reports she is allergic to either Ultram or Toradol. Patient reports she is driving but will find a ride. We will go ahead and proceed with IV morphine. I did inform her that she cannot drive home once receiving this medication. Patient would like to proceed. Once the patient is more co mfortable I will reassess her abdomen as I am unable to do so due to severe pain. 12/01/19 09:32 After receiving the IV morphine I did going to reassess the abdomen. Patient is pointing to the left flank and left lower abdomen in regards to her discomfort. Patient does have mild tenderness to the left lower quadrant. Patient is receiving IV fluids but has been unable to provide a urine sample. 12/01/19 12:47 Patient's pelvic ultrasound was negative. Patient does have a 5 mm left obstructing mid ureteral stone. I provided the patient with multiple urology Follow-ups. Patient will be giving pain medication, Flomax as well as antinausea medication. Patient's urine did show small amount of leuks with 11 WBCs. Patient is not febrile, tachycardic or hypotensive. I will go ahead and place the patient on Keflex. A urine culture is pending. Patient instructed to return if she develops a fever, inability to urinate, severe pain that is not controlled with the medication or any new or worsening symptoms. 12/01/19 14:23 Patient is resting comfortably on stretcher no acute distress. Patient is waiting for a ride. Patient did receive first dose of Flomax here in the emergency department. Patient denies pain at this time. Patient states that she has taken oral morphine in the past that was prescribed by [facility] for kidney stones. Patient reports she is very conservative in regards to the medications that she takes due to multiple allergies. 12/01/19 14:45 Patient was discharged in no acute distress. - Vital Signs Vital signs: Temp Pulse Resp BP Pulse Ox 98.7 F 68 15 138/64 H 97 12/01/19 12:55 12/01/19 12:55 12/01/19 12:55 12/01/19 12:55 12/01/19 12:55 - Laboratory Result Diagrams: 12/01/19 08:15 12/01/19 08:15 Laboratory results interpreted by me: 12/01/19 12/01/19 08:15 10:27 AST 37 H ALT 39 H Urine Protein 30 H Urine Blood LARGE H Ur Leukocyte Esterase SMALL H Urine Ascorbic Acid 40 H Lab work does not show significant leukocytosis or anemia. There is no alteration in electrolytes or kidney function. AST and ALT slightly elevated. Urinalysis show 11 WBCs and small leuks. Laboratory 12/01/19 12/01/19 12/01/19 08:15 08:15 08:15 WBC 9.3 RBC 4.41 Hgb 14.0 Hct 40.6 MCV 92 MCH 31.6 MCHC 34.4 RDW 12.9 Plt Count 323 Lymph % (Auto) 39.3 Eagle % (Auto) 10.0 Eos % (Auto) 3.9 Baso % (Auto) 0.6 Absolute Neuts (auto) 4.3 Absolute Lymphs (auto) 3.7 Absolute Monos (auto) 0.9 Absolute Eos (auto) 0.4 Absolute Basos (auto) 0.1 Seg Neutrophils % 46.2 Sodium 140.9 Potassium 4.6 Chloride 104 Carbon Dioxide 28 Anion Gap 9 BUN 19 Creatinine 0.64 Est GFR ( Amer) > 60 Est GFR (MDRD) Non-Af > 60 Glucose 105 Calcium 9.7 Total Bilirubin 0.7 Direct Bilirubin 0.4 Neonat Total Bilirubin Not Reportable Neonat Direct Bilirubin Not Reportable Neonat Indirect Bili Not Reportable AST 37 H ALT 39 H Alkaline Phosphatase 57 Total Protein 7.7 Albumin 4.6 Lipase 153.4 Serum HCG, Qual NEGATIVE Urine Color Urine Appearance Urine pH Ur Specific [place] Urine Protein Urine Glucose (UA) Urine Ketones Urine Blood Urine Nitrite Urine Bilirubin Urine Urobilinogen Ur Leukocyte Esterase Urine WBC (Auto) Urine RBC (Auto) Urine Bacteria (Auto) Squamous Epi Cells Auto Urine Mucus (Auto) Urine Ascorbic Acid 12/01/19 10:27 WBC RBC Hgb Hct MCV MCH MCHC RDW Plt Count Lymph % (Auto) Eagle % (Auto) Eos % (Auto) Baso % (Auto) Absolute Neuts (auto) Absolute Lymphs (auto) Absolute Monos (auto) Absolute Eos (auto) Absolute Basos (auto) Seg Neutrophils % Sodium Potassium Chloride Carbon Dioxide Anion Gap BUN Creatinine Est GFR ( Amer) Est GFR (MDRD) Non-Af Glucose Calcium Total Bilirubin Direct Bilirubin Neonat Total Bilirubin Neonat Direct Bilirubin Neonat Indirect Bili AST ALT Alkaline Phosphatase Total Protein Albumin Lipase Serum HCG, Qual Urine Color YELLOW Urine Appearance TURBID Urine pH 6.0 Ur Specific [place] 1.023 Urine Protein 30 H Urine Glucose (UA) NEGATIVE Urine Ketones NEGATIVE Urine Blood LARGE H Urine Nitrite NEGATIVE Urine Bilirubin NEGATIVE Urine Urobilinogen NEGATIVE Ur Leukocyte Esterase SMALL H Urine WBC (Auto) 11 Urine RBC (Auto) 125 Urine Bacteria (Auto) TRACE Squamous Epi Cells Auto 3 Urine Mucus (Auto) OCC Urine Ascorbic Acid 40 H - Diagnostic Test Radiology reviewed: Reports reviewed Radiology results interpreted by me: 12/01/19 12:46 Abdomen/Pelvis CT 12/01/19 09:47 IMPRESSION: 5 mm obstructing stone within the mid left ureter with moderate associated hydroureteronephrosis. Transvaginal US 12/01/19 09:56 IMPRESSION: Normal sonographic appearance of the uterus and adnexa. Discharge - Discharge Clinical Impression: Ureteral stone with hydronephrosis Condition: Stable Disposition: HOME, SELF-CARE Additional Instructions: Today are seen in the emergency department for flank pain. The CAT scan did show that you have a 5 mm obstructing left ureteral stone. It does appear that you are currently passing the stone. You have received multiple doses of pain medication while here in the emergency department. I am placing you on oral Percocet. Percocet is a narcotic. Do not drive or operate heavy machinery while on this medication. Some patients can pass a 5 mm stone without intervention. I have provided you with urology follow-up. Please contact them at your earliest convenience to schedule a follow-up appointment. You are also being prescribed Flomax. Flomax will help dilate the ureter. You are also being given a urine strainer. Please use this until the stone is passed. [facility] [address], [place] [phone] [facility] [address] [place], [place] [phone] KIDNEY STONE: You are passing or have passed a kidney stone. These stones are usually due to increased calcium or uric acid concentrations in your urine. Stones within the kidney itself are not painful. The pain occurs as the stone leaves the kidney to pass down the long tube, called the ureter, leading to the bladder. If the stone is small, it will usually pass by itself. Most patients can pass the stone at home. You will usually receive medications for pain, nausea or vomiting, and sometimes a medication to assist in passing the kidney stone. However, if the pain is very severe or if vomiting prevents you from taking oral pain medications, you may need to return for further treatment. Drink three or four quarts of fluids per day. You will be given pain medication (if needed) and urine strainers. Strain all your urine to see if the stone passes. If your doctor has asked you to bring the stone in for analysis, return with the stone once it has passed. Return if pain or vomiting become severe, if you develop a high fever, if you are unable to pass your urine, or if other unusual symptoms occur. PAIN MEDICATION INJECTION: You have received an injection of a pain medication. You should experience significant pain relief within 45 minutes. This drug is a narcotic -- it will impair your judgement, slow your reaction time and make you sleepy (as well as relieve your pain). Narcotics also can cause nausea. You should not drive, work with machinery, or perform any task requiring mental alertness until all effects of the medication are gone -- six to eight hours. Do not take any alcohol, or sedatives, and do not take any other medication without checking with your physician. ANTINAUSEA MEDICATION: You have been given a medication to suppress nausea and vomiting. This type of medication can be given as a shot, pill, or suppository. It will usually last for many hours. Pills and shots usually last six to eight hours, suppositories last about 12 hours. For the typical illness, only one or two doses of the medication may be necessary. Mild lightheadedness may occur. This type of medicine can cause drowsiness. Do not drive or operate dangerous machinery while under its influence. Do not mix with alcohol. See your doctor at once if you have muscle spasms or tightness, or uncontrollable motions (particularly of the neck, mouth, or jaw). Persistent vomiting or severe lightheadedness should also be evaluated by the physician. ORAL NARCOTIC MEDICATION: You have been given a prescription for pain control. This medication is a narcotic. It's best taken with food, as nausea can result if taken on an empty stomach. Don't operate machinery or drive within six hours of taking this medication. Do not combine this medicine with alcohol, or with any medication which can cause sedation (such as cold tablets or sleeping pills) unless you get permission from the physician. Narcotics tend to cause constipation. If possible, drink plenty of fluids and eat a diet high in fiber and fruits. Please be aware that prescription narcotics also have the potential for abuse. People become addicted to these medications because of the general sense of wellbeing that they induce. This feeling along with a significant reduction in tension, anxiety, and aggression provides a stimulating seductive quality to these drugs. Once your pain is under control, we encourage you to discard your unused narcotics. FLOMAX (tamsulosin): Flomax is a medicine that shrinks the prostate gland. It helps relieve symptoms of benign prostatic hypertrophy, such as frequent urination, weak stream, and inadequate emptying. It has been shown to dilate the ureter (tube leading from the kidney to the bladder) and help in passing kidney stones Flomax usually causes no side effects. You may notice slight tiredness and dizziness for a few days. Some patients develop nasal congestion. Rarely, impotence can occur. If the symptoms are bothersome and don't improve with continued use, call your doctor. Contact your doctor or return if you have fainting spells, severe weakness or dizziness, shortness of breath, or rash. FOLLOW-UP CARE: If you have been referred to a physician for follow-up care, call the physicians office for an appointment as you were instructed or within the next two days. If you experience worsening or a significant change in your symptoms, notify the physician immediately or return to the Emergency Department at any time for re-evaluation. Prescriptions: Morphine Sulfate [Morphine Ir 15 mg Tablet] 15 mg PO Q6HP PRN 3 Days #12 tablet PRN Reason: Tamsulosin HCl [Flomax 0.4 mg Cap.sr] 0.4 mg PO DAILY #7 cap.sr.24h Cephalexin Monohydrate [Keflex 500 mg Capsule] 500 mg PO BID 5 Days #10 capsule Ondansetron [Zofran Odt 4 mg Tablet] 1 tab PO Q4H PRN #15 tab.rapdis PRN Reason: For Nausea/Vomiting Referrals: CORWIN KAPADIA PA-C [Primary Care Provider] - Follow up as needed
[2019-12-01 08:45] LABS: ABSOLUTE BASOPHILS # (AUTO) 0.1 10^3/uL (0.0-0.2); ABSOLUTE EOSINOPHILS # (AUTO) 0.4 10^3/uL (0.0-0.6); ABSOLUTE LYMPHOCYTES (AUTO) 3.7 10^3/uL (0.5-4.7); ABSOLUTE MONOCYTES (AUTO) 0.9 10^3/uL (0.1-1.4); ABSOLUTE NEUT (AUTO) 4.3 10^3/uL (1.7-8.2); BASOPHILS % (AUTO) 0.6 % (0-2); EOSINOPHILS % (AUTO) 3.9 % (0-6); HEMATOCRIT 40.6 % (36.0-47.0); LYMPHOCYTES % (AUTO) 39.3 % (13-45); MEAN CORPUSCULAR HEMOGLOBIN 31.6 pg (27.0-33.4); MEAN CORPUSCULAR HGB CONC 34.4 g/dL (32.0-36.0); MEAN CORPUSCULAR VOLUME 92 fl (80-97); PLATELET COUNT 323 10^3/uL (150-450); RED BLOOD COUNT 4.41 10^6/uL (3.72-5.28); RED CELL DISTRIBUTION WIDTH 12.9 % (11.5-14.0); SEGMENTED NEUTROPHILS % (AUTO) 46.2 % (42-78); TOTAL CELLS COUNTED % (AUTO) 100 %; WHITE BLOOD COUNT 9.3 10^3/uL (4.0-10.5)
[2019-12-01 09:05] LABS: ALBUMIN 4.6 g/dL (3.5-5.0); ALKALINE PHOSPHATASE 57 U/L (38-126); ANION GAP 9 (5-19); ASPARTATE AMINO TRANSFERASE 37 U/L (14-36); BILIRUBIN,DIRECT 0.4 mg/dL (0.0-0.4); BILIRUBIN,TOTAL 0.7 mg/dL (0.2-1.3); BLOOD UREA NITROGEN 19 mg/dL (7-20); CALCIUM 9.7 mg/dL (8.4-10.2); CARBON DIOXIDE 28 mmol/L (22-30); CHLORIDE 104 mmol/L (98-107); GLUCOSE 105 mg/dL (75-110); POTASSIUM 4.6 mmol/L (3.6-5.0); TOTAL PROTEIN 7.7 g/dL (6.3-8.2)
--- NOTE | 2019-12-01 10:27 | RADIOLOGY REPORT (SQ) ---
EXAM DESCRIPTION: CT ABD/PELVIS NO ORAL OR IV IMAGES COMPLETED DATE/TIME: 12/01/2019 10:08 am REASON FOR STUDY: acute onset left flank pain COMPARISON: 11/13/2013 TECHNIQUE: CT scan of the abdomen and pelvis performed without intravenous or oral contrast. Images reviewed with lung, soft tissue, and bone windows. Reconstructed coronal and sagittal MPR images revi ewed. All images stored on PACS. All CT scanners at this facility use dose modulation, iterative reconstruction, and/or weight based d osing when appropriate to reduce radiation dose to as low as reasonably achievable (ALARA). [facility]: Dose Right [facility]: CareDose [facility]: Dose Right [facility]: Teradose 4D [facility]: Smart [employer] RADIATION DOSE: CT Rad equipment meets quality standard of care and radiation dose reduction techniq ues were employed. CTDIvol: 19.2 mGy. DLP: 1219 mGy-cm.mGy. LIMITATIONS: None. FINDINGS: LOWER CHEST: No significant findings. No nodules or infiltrates. NON-CONTRASTED LIVER, SPLEEN, ADRENALS: Evaluation limited by lack of IV contrast. No identified sign ificant masses. PANCREAS: No masses. No peripancreatic inflammatory changes. GALLBLADDER: Surgically absent. RIGHT KIDNEY AND URETER: No suspicious masses. Assessment limited by lack of IV contrast. No signif icant calcifications. No hydronephrosis or hydroureter. LEFT KIDNEY AND URETER: No suspicious masses. Assessment limited by lack of IV contrast. There is a n obstructing stone within the mid left ureter measuring 5 mm (series 3, image 65). Moderate associ ated hydroureteronephrosis and perinephric stranding. AORTA AND RETROPERITONEUM: No aneurysm. No retroperitoneal masses or adenopathy. BOWEL AND PERITONEAL CAVITY: No obvious masses or inflammatory changes. No free fluid. APPENDIX: Normal. PELVIS, BLADDER, AND ABDOMINAL WALL:Decompressed urinary bladder. No pelvic free fluid, adenopathy o r mass. Small fat containing periumbilical hernia. BONES: No acute bony abnormality. No suspicious osseous lesions. OTHER: Morbid obesity. IMPRESSION: 5 mm obstructing stone within the mid left ureter with moderate associated hydroureteron ephrosis. COMMENT: Quality ID # [id number]: Final reports with documentation of one or more dose reduction techniques (e.g., Automated exposure control, adjustment of the mA and/or kV according to patient size, use of iterative reconstruction technique) TECHNICAL DOCUMENTATION: JOB ID: [id number] 2010 [email or web address] All Rights Reserved Reading location - IP/workstation name: [email or web address]
[2019-12-01 11:44] LABS: APPEARANCE,URINE TURBID; BILIRUBIN,URINE NEGATIVE (NEGATIVE); GLUCOSE, URINE NEGATIVE (NEGATIVE); KETONES,URINE NEGATIVE (NEGATIVE); LEUKOCYTE ESTERASE,URINE SMALL (NEGATIVE); NITRITE,URINE NEGATIVE (NEGATIVE); PROTEIN,URINE 30 mg/dL (NEGATIVE); URINE SPECIFIC GRAVITY 1.023; UROBILINOGEN,URINE NEGATIVE mg/dL (<2.0)
[2019-12-01 11:48] LABS: COLOR,URINE YELLOW
--- NOTE | 2019-12-01 12:45 | RADIOLOGY REPORT (SQ) ---
EXAM DESCRIPTION: U/S NON OB PEL TV W/DOPPLER IMAGES COMPLETED DATE/TIME: 12/01/2019 12:16 pm REASON FOR STUDY: left lower quadrant pain, hx PCOS COMPARISON: None. TECHNIQUE: Dynamic and static grayscale images acquired of the pelvis via transvaginal approach and recorded on PACS. Additional selected color Doppler and spectral images recorded. LIMITATIONS: None. FINDINGS: UTERUS: Contour normal. No mass. ENDOMETRIAL STRIPE: No focal or generalized thickening. No masses. CERVIX: Scattered nabothian cysts RIGHT OVARY AND DOPPLER: Normal size. No worrisome masses. Normal arterial vascular flow without evid ence for torsion. LEFT OVARY AND DOPPLER: Normal size. No worrisome masses. Normal arterial vascular flow without evide nce for torsion. FREE FLUID: None noted. OTHER: No other significant finding. MEASUREMENTS: UTERUS: 8.4 x 3.6 x 5.2 cm ENDOMETRIAL STRIPE: 0.6 cm RIGHT OVARY: 4.0 x 2.6 x 2.2 cm LEFT OVARY: 3.9 x 2.3 x 3.0 cm IMPRESSION: Normal sonographic appearance of the uterus and adnexa. TECHNICAL DOCUMENTATION: JOB ID: [id number] 2010 [employer]- All Rights Reserved Rev-06/29 Reading location - IP/workstation name: [email or web address]
[2019-12-01 12:56] VITALS: BP 138/64
[2019-12-01] MEDS ORDERED: MORPHINE SULFATE IR 15 MG TABLET PO ONE (13:26)
[2019-12-01] MEDS ORDERED: TAMSULOSIN HCL 0.4 MG CAP.SR.24H PO ONE (13:26)
== END 2019-12-01 14:30 | disposition home or self-care (01) ==
LOC: ER 07:41
DX: N13.2 Hydronephrosis with renal and ureteral calculous obstruction (principal); R74.01 Elevation of levels of liver transaminase levels; I10 Essential (primary) hypertension; Z88.8 Allergy status to other drugs, medicaments and biological substances; Z91.018 Allergy to other foods; Z88.0 Allergy status to penicillin; Z88.6 Allergy status to analgesic agent
CPT/HCPCS: 96376; 99285; 96361; 96374; 96375; 36415; 87086; 83690; 84703; 85025; 80053; 81001; 76830; 93976; 74176; J2270; J2405; J7030